=== PATIENT | female | born 1965 | race Caucasian/White ===

== ENCOUNTER → 2017-04-11 | Outpatient (CLI) | payer OTHER ==
--- NOTE | 2017-04-13 18:26 | PCVCIMAG ---
APPROVED REPORT Exam: Stress Echocardiogram Indication: Dyspnea , Fatigue Patient Location: Echo lab Stress Nurse: Opal Kiser RN Status: routine Ht: 5 ft 2 in HR: 90 bpm BP: 130/78 mmHg Rhythm: NSR Medical History Medical History: Fatigue Previous Cardiac Procedures: none Pretest Chest Pain Characteristics: No chest pain Exercise History: Physically active Procedure The patient underwent an Exercise Stress Test using the Stanislaw Protocol. Blood pressure, heart rate, and EKG were monitored. An Echocardiogram was performed by dye penetrant testing technician in four stages in quad fashion. At peak stress, four selected images were obtained and placed side by side with resting images for comparison. Stress Test Details Stress Test: Exercise stress testing was performed using a Stanislaw protocol. HR Resting HR: 90 bpmMax Heart Rate (APMHR): 169 bpm Max HR Achieved: 193 bpmTarget HR (85% APMHR): 143 bpm % of APMHR: 114 Recovery HR: 107 bpm HR response to stress: Normal HR response to stress BP Resting BP: 130/78 mmHg Max BP: 132/60 mmHg Recovery BP: 114/64 mmHg ECG Resting ECG: Sinus Rhythm Stress ECG: Sinus Rhythm ST Change: Normal Maximum ST Deviation: 0.9 mm Arrhythmia: Occasional PVCs and rare couplets at peak exercise Recovery ECG: Sinus Rhythm Recovery ST Change: Normal Recovery Arrhythmia: None Clinical Reason for Termination: Maximal effort Stress Symptoms: none Exercise duration: 13 min 31 sec Highest Stage Achieved: Stage 5: 5.0 mph at 18% grade. Exercise capacity: 17.2 METs Overall Exercise Capacity for Age: Excellent Angina Score: None Stress ECG Conclusion 1. SUBJECTIVELY NEGATIVE FOR ISCHEMIA 2. ELECTROCARDIOGRAPHICALLY NEGATIVE FOR ISCHEMIA 3. EXCELLENT FUNCTIONAL CAPACITY Blood Treadmill Score is 8.5 which is Low risk. Pre-Stress Echo The resting Echocardiogram showed normal left ventricular contractility with an estimated Ejection Fraction of about 55-60%. Normal wall motion in all segments on baseline images. Post-Stress Echo The stress Echocardiogram showed normal left ventricular contractility with an estimated Ejection Fraction of about 65-70%. Normal augmentation of wall motion in all segments on post stress images. Clinical No clinical or ECG evidence for ischemia. Conclusion Clinical Response: Non-ischemic Exercise Capacity: Superior Stress ECG Response: Non-ischemic Stress Echo Images: Non-ischemic 1. LOW RISK STUDY <Conclusion> 1. LOW RISK STUDY
== END | disposition home or self-care (01) ==
LOC: PCVCIMAG 11:16
PROVIDERS: ATTEND Internal Medicine
DX: I49.3 Ventricular premature depolarization (principal); E78.5 Hyperlipidemia, unspecified
CPT/HCPCS: 93325; 93351